=== PATIENT | male | born 1970 | race Two or more races ===

== ENCOUNTER 2023-07-08 18:32 | Emergency (ER) | payer OTHER ==
[~2023-07-08] VITALS: Ht 165.1 cm; Wt 100.0 kg
[2023-07-08] MEDS ORDERED: SODIUM CHLORIDE 0.9% 1,000 ML IVB ONE (19:00)
[2023-07-08 19:22] LABS: Basophils # (auto) 0 10 ^3/uL (0-0.2); Basophils % (auto) 0.1 % (0.0-2.0); Eosinophils # (auto) 0 10 ^3/uL (0-0.8); Eosinophils % (auto) 0.5 % (0.0-7.0); Hematocrit 46.7 % (41.0-53.0); Hemoglobin 15.9 g/dL (13.5-17.5); Lymphocytes # (auto) 2.2 10 ^3/uL (0.4-5.4); Lymphocytes % (auto) 28.3 % (10.0-50.0); Mean Corpuscular Hemoglobin 32.8 pg (28.0-32.0); Mean Corpuscular Volume 96.5 fL (80.0-100.0); Monocytes # (auto) 0.5 10 ^3/uL (0-1.3); Monocytes % (auto) 6.2 % (0.0-12.0); Neutrophils % (auto) 64.9 % (37.0-80.0); Nucleated Red Blood Cells % 0.1 %; Red Blood Cells 4.84 10^6/uL (4.5-5.90); Red Cell Distribution Width 14.2 % (11.8-14.3); White Blood Cell 7.7 10^3/uL (4.4-10.8)
[2023-07-08 19:44] LABS: Alanine Aminotransferase 24 U/L (7-40); Albumin 4.8 g/dL (3.2-4.8); Alkaline Phosphatase 90 U/L (46-116); Anion Gap 11.3 (5-15); Aspartate Aminotransferase 17 U/L (13-40); BUN/Creatinine Ratio 10.5 (10.0-20.0); Bilirubin, Total 0.2 mg/dL (0.2-1.0); Blood Urea Nitrogen 8 mg/dL (9-23); Calcium 9.1 mg/dL (8.5-10.1); Carbon Dioxide 21.7 mmol/L (20-30); Chloride 114 mmol/L (98-107); Glucose 108 mg/dL (74-106); Potassium 3.9 mmol/L (3.5-5.1); Sodium 147 mmol/L (136-145); Total Protein 7.5 g/dL (5.7-8.2)
[2023-07-08 19:58] LABS: Blood Alcohol 514.3 mg/dL (<10)
[2023-07-08] MEDS ORDERED: LORazepam 2MG/ML-1ML VIAL IM ONE (22:45)
[2023-07-08 22:58] VITALS: PULSE 97; RESP 16; TEMP 97.4; O2SAT 98
[2023-07-09 09:30] VITALS: BP 136/71; PULSE 88; RESP 18; O2SAT 99
== END 2023-07-09 09:40 | disposition home or self-care (01) ==
LOC: ER 18:32 → EDBD 18:32 → ER 07-09 09:40
DX: F10.129 Alcohol abuse with intoxication, unspecified (principal); R06.02 Shortness of breath; R51.9 Headache, unspecified; Y90.0 Blood alcohol level of less than 20 mg/100 ml
CPT/HCPCS: 36415; 70450; 80053; 80320; 85025; 93005; 96372; 99285; J2060